=== PATIENT | female | born 1980 | race Caucasian/White ===

== ENCOUNTER → 2018-03-29 | Outpatient (CLI) | payer OTHER ==
[~2018-03-29] MED LIST: ACETAMINOPHEN-1 EAC1 PO; PHENERGAN 25 MG25 M1 PO; ZOFRAN ODT4 MG PO
== END ==
LOC: M.ULTRA 14:30
DX: N63.12 Unspecified lump in the right breast, upper inner quadrant (principal)

== ENCOUNTER 2018-04-02 09:22 | Emergency (ER) | payer OTHER ==
[~2018-04-02] VITALS: Ht 154.9 cm; Wt 53.5 kg
[2018-04-02] MEDS ORDERED: NADOLOL 20 MG T20 M1 PER TUBE (09:36)
[2018-04-02] MEDS ORDERED: MAGOX 400400 MG PO (09:36)
[2018-04-02] MEDS ORDERED: ZYRTEC10 M5 PO (09:36)
[2018-04-02] MEDS ORDERED: AUGMENTIN 875-1 EACH PO (09:43)
[2018-04-02 09:49] VITALS: BP 119/55
== END 2018-04-02 09:50 | disposition home or self-care (01) ==
LOC: M.ERS 09:22
DX: J02.0 Streptococcal pharyngitis (principal)

== ENCOUNTER → 2020-04-15 | Outpatient (CLI) | payer OTHER ==
[~2020-04-15] MED LIST changes: +AUGMENTIN 875-1 EACH PO; +MAGOX 400400 MG PO; +NADOLOL 20 MG T20 M1 PER TUBE; +ZYRTEC10 M5 PO
--- NOTE | 2020-04-20 22:09 | PF ---
[address] [address] PULMONARY FUNCTION REPORT Name: JACKSON CODY Room: [facility]#: [id number] Admission: 04/15/20 Attend Phys: RONEY MONTGOMERY Discharge: Date of : 82 Report #: [id number] THIS REPORT FOR: cc: RONEY GONASLES NP, KATHERINE J. NP ~ Dharmesh Guerra MD DATE OF SERVICE: 04/15/2020 The FEV1/FVC ratio is normal at 73%, but the FVC is decreased to 67% and FEV1 decreased to 59%. The [id number] is also decreased to 32%. The patient's FEV1 is noted to be 1.58 liters. The total lung capacity is normal at 84% with a residual volume normal at 102%. The DLCO as adjusted for hemoglobin is decreased to 37%. IMPRESSION: There is a restrictive pattern on spirometry restriction, however, is not detected by lung volumes, possible etiologies include underlying moderate obstruction as well as a poor effort or neuromuscular weakness. Clinical correlation is advised. Reversibility is not available with these pulmonary function tests. If clinically appropriate, then a spirometry with reversibility could be performed to evaluate further. <ELECTRONICALLY SIGNED> By: Dharmesh Guerra MD 04/20/20 [id number] [id number] Guerra MD /nt
== END ==
LOC: M.PUL 13:12
PROVIDERS: ATTEND Nurse Practitioner Family
DX: R05 Cough (principal)